=== PATIENT | male | born 1965 | race Caucasian/White ===

== ENCOUNTER 2017-04-03 20:42 | Emergency (ER) | payer OTHER ==
[2017-04-03 21:09] VITALS: BP 132/90; PULSE 60; TEMP 97.5; BMI 24.3
--- NOTE | 2017-04-03 22:41 | PDOC ---
History of Present Illness - General Chief Complaint: Pain, Acute Stated Complaint: LEFT FOOT PAIN Time Seen by Provider: 04/03/17 21:45 History Source: Patient Exam Limitations: No Limitations - History of Present Illness Initial Comments: 04/03/17 22:35 Patient is a 51 year old male, denies any significant medical history. Patient reports 4 days ago he twisted his left lower leg while at work now with pain to left lower anterior leg just superior to ankle. Pain to touch. Past Medical History: Denies. Allergies: No known allergies Medications: None Family History: Non-contributory Social History: Denies smoking, alcohol use, or IVDU Review of Systems GENERAL/CONSTITUTIONAL: No fever or chills. No weakness. No weight change. HEAD, EYES, EARS, NOSE AND THROAT: No change in vision. No ear pain or discharge. No sore throat. CARDIOVASCULAR: No chest pain or shortness of breath. RESPIRATORY: No cough, wheezing, or hemoptysis. GASTROINTESTINAL: No nausea, vomiting, diarrhea or constipation. No rectal bleeding. GENITOURINARY: No dysuria, frequency, or change in urination. MUSCULOSKELETAL: Pain to anterior left lower leg, no visible injury SKIN : No erythema edema or bruising NEUROLOGIC: No headache, vertigo, loss of consciousness, or loss of sensation. No numbness or tingling Physical Exam: GENERAL: The patient is awake, alert, and fully oriented, in no acute distress. LUNGS: Breath sounds equal, clear to auscultation bilaterally. No wheezes, and no crackles. HEART: Regular rate and rhythm, normal S1 and S2 without murmur, rub or gallop. MUSCULOSKELETAL: Normal range of motion, no edema. No clubbing or cyanosis. No cords, erythema, or tenderness. Pain to left anterior lower leg NEUROLOGICAL: Cranial nerves II through XII grossly intact. Normal speech, normal gait. SKIN: Warm, Dry, normal turgor, no rashes or lesions noted. No erythema edema or bruising 04/03/17 22:50 Past History - Past Medical History Allergies/Adverse Reactions: Allergies Allergy/AdvReac Type Severity Reaction Status Date / Time No Known Allergies Allergy Verified 04/03/17 21:09 Home Medications: Ambulatory Orders Ibuprofen [Motrin -] 600 mg PO QID #28 tablet 04/03/17 Oxycodone HCl/Acetaminophen [Percocet 5-325 mg Tablet] 1 tab PO Q6H #8 tablet MDD 4 04/03/17 Other medical history: Denies - Surgical History Appendectomy: Yes - Immunization History Immunization Up to Date: Yes - Psycho/Social/Smoking Cessation Hx Suicidal Ideation: No Smoking History: Never smoked Information on smoking cessation initiated: No Hx Alcohol Use: No Drug/Substance Use Hx: No Substance Use Type: None *Physical Exam - Vital Signs Last Vital Signs Temp Pulse Resp BP Pulse Ox 97.5 F L 60 16 132/90 97 04/03/17 21:05 04/03/17 21:05 04/03/17 21:05 04/03/17 21:05 04/03/17 21:05 ED Treatment Course - RADIOLOGY Radiology Studies Ordered: Category Date Time Status ANKLE & FOOT-LEFT* [RAD] Stat Radiology 04/03/17 21:23 Taken LEG TIB/FIB-LEFT [RAD] Stat Radiology 04/03/17 21:47 Taken Medical Decision Making - Medical Decision Making 04/03/17 22:51 A/P: Patient with left anterior lower leg pain. Patient states he twisted his leg 4 days ago and still with pain unsure of any other trauma or hitting area. There is no erythema edema or bruising. Patient sent to x-ray, x-ray reviewed with Dr. Choi, no acute fracture was noted. Jese wrap placed to the area patient states some relief. Patient reports that he is unable to sleep because of the pain, there is no calf pain, negative Homans sign. No risk factors for DVT. We'll DC patient home on a few Percocet, Motrin and anti-inflammatories, strict follow-up with Dr. Hurtado. I discussed the physical exam findings, ancillary test results and final diagnoses with the patient. I answered all of the patient's questions. The patient was satisfied with the care received and felt comfortable with the discharge plan and treatment plan. The patient will call to arrange follow-up and will return to the Emergency Department with any new, persistent or worsening symptoms. *DC/Admit/Observation/Transfer Diagnosis at time of Disposition: Leg pain Qualifiers: Laterality: left Qualified Code(s): M79.605 - Pain in left leg Injury of left leg Qualifiers: Encounter type: initial encounter Qualified Code(s): S89.92XA - Unspecified injury of left lower leg, initial encounter - Discharge Dispostion Disposition: HOME Condition at time of disposition: Good Admit: No - Prescriptions Prescriptions: Ibuprofen [Motrin -] 600 mg PO QID #28 tablet Oxycodone HCl/Acetaminophen [Percocet 5-325 mg Tablet] 1 tab PO Q6H #8 tablet MDD 4 - Referrals Referrals: Yodit Cunha MD [Primary Care Provider] - Sukh Hurtado MD [Staff Physician] - - Patient Instructions Additional Instructions: 1. Please return to the emergency department with any redness, swelling, increased pain, or any other concerns. 2. Keep jese wrap on for support. 3. Please follow up in the office of Dr. Hurtado within a week if pain persists. 4. No weightbearing 5. Ice and elevate when at rest. 6. Motrin for pain
== END 2017-04-03 22:44 | disposition home or self-care (01) ==
LOC: JERFT 20:42
DX: S89.82XA Other specified injuries of left lower leg, initial encounter (principal); X50.1XXA Overexertion from prolonged static or awkward postures, initial encounter; Y93.89 Activity, other specified; Y92.89 Other specified places as the place of occurrence of the external cause; Y99.0 Civilian activity done for income or pay
CPT/HCPCS: 73590-TC-LT; 73610-TC-LT; 73630-TC-LT; 99281-25

== ENCOUNTER 2019-02-19 19:05 | Emergency (ER) | payer OTHER ==
[2019-02-19 19:11] VITALS: BP 129/86; PULSE 63; TEMP 98.1; BMI 25.8
--- NOTE | 2019-02-19 19:13 | PDOC ---
Rapid Medical Evaluation Medical Evaluation: Allergies Allergy/AdvReac Type Severity Reaction Status Date / Time No Known Allergies Allergy Verified 04/03/17 21:09 02/19/19 19:08 I have performed a brief in-person evaluation of this patient. The patient presents with a chief complaint of: abd pain x 5 dAYS, + constipation no medications for resolve Pertinent physical exam findings: abd soft with some mid- epigastric pain / NO alcohol or drugs I have ordered the following: Flat Upright Xray The patient will proceed to the ED for further evaluation. Discharge Disposition - Diagnosis Abdominal pain - Referrals - Patient Instructions - Post Discharge Activity
--- NOTE | 2019-02-19 20:57 | PDOC ---
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 Pt was unable to describe the pain, but stated it was constant, nonradiating, no aggravating or alleviating factors. Pt denied daily ETOH use, denied daily NSAID use, denied spicy/fried food intake. Pt denied fever, chills, nausea, vomiting, diarrhea. Pt admitted to bowel movement today. Allergies: NKDA Past History - Past Medical History Allergies/Adverse Reactions: Allergies Allergy/AdvReac Type Severity Reaction Status Date / Time No Known Allergies Allergy Verified 02/19/19 19:11 Home Medications: Ambulatory Orders Ibuprofen [Motrin -] 600 mg PO QID #28 tablet 04/03/17 Oxycodone HCl/Acetaminophen [Percocet 5-325 mg Tablet] 1 tab PO Q6H #8 tablet MDD 4 04/03/17 Pantoprazole Sodium [Protonix -] 40 mg PO DAILY #14 tablet.ec 02/19/19 Pantoprazole Sodium [Protonix -] 40 mg PO DAILY #14 tablet.ec 02/19/19 COPD: No - Surgical History Appendectomy: Yes - Immunization History Immunization Up to Date: Yes - Suicide/Smoking/Psychosocial Hx Smoking History: Never smoked Hx Alcohol Use: No Drug/Substance Use Hx: No Substance Use Type: None Review of Systems - Review of Systems Able to Perform ROS?: Yes Comments:: 02/19/19 21:24 General: denied fever, chills, generalized weakness. HEENT: denied sore throat, rhinorrhea, ear pain. Heart: denied chest pain, palpitations, syncope, diaphoresis. Respiratory: denied shortness of breath, cough, sputum production, hemoptysis. Abdomen: admitted to abdominal pain. denied nausea, vomiting, diarrhea, constipation, blood in stool. : denied dysuria, increased urinary frequency, hematuria, urinary incontinence , flank pain. Back: denied back pain. Musculoskeletal: denied joint pain, muscle pain, joint swelling. Neurological: denied headache, dizziness, numbness, tingling, weakness. Skin: denied rash, laceration, abrasion. *Physical Exam - Vital Signs Last Vital Signs Temp Pulse Resp BP Pulse Ox 98.1 F 63 18 129/86 95 02/19/19 19:08 02/19/19 19:08 02/19/19 19:08 02/19/19 19:08 02/19/19 19:08 - Physical Exam Comments: 02/19/19 21:24 Constitutional: Well-nourished, Well-developed, appearing stated age. HEENT: head is normocephalic, atraumatic. EOMI. PERRLA. Neck: supple. Full ROM. Heart: regular rhythm. no murmurs, rubs or gallops. Lungs: clear to auscultation bilaterally. no crackles, rhonchi or wheezing. no stridor. Abdomen: soft, flat, epigastric tenderess to palpation. murphys negative. normal bowel sounds. no rebound, guarding, masses. Extremities: peripheral pulses intact. no lower extremity edema. Neurological: CN 2-12 grossly intact. moves all four extremities. Psych: awake, alert, oriented x3. follows commands. answers questions appropriately. ED Treatment Course - LABORATORY CBC & Chemistry Diagram: 02/19/19 21:18 02/19/19 21:17 Medical Decision Making - Medical Decision Making 02/19/19 21:24 53 year old male with above PMH presented to ED for epigastric pain x5 days. Initial Vital Signs Temp Pulse Resp BP Pulse Ox 98.1 F 63 18 129/86 95 02/19/19 19:08 02/19/19 19:08 02/19/19 19:08 02/19/19 19:08 02/19/19 19:08 Afebrile. No tachycardia. No tachypnea. No hypotension. No hypoxia on room air. Labs ordered: CBC, CMP, lipase Medications ordered: pepcid, maalox Imaging ordered: KUB 02/19/19 22:19 CBC WBC 3.9 K/mm3 (4.0-10.0) L 02/19/19 21:18 RBC 4.57 M/mm3 (4.00-5.60) 02/19/19 21:18 Hgb 12.8 GM/dL (11.7-16.9) 02/19/19 21:18 Hct 39.6 % (35.4-49) 02/19/19 21:18 MCV 86.7 fl (80-96) 02/19/19 21:18 MCH 27.9 pg (25.7-33.7) 02/19/19 21:18 MCHC 32.2 g/dl (32.0-35.9) 02/19/19 21:18 RDW 13.5 % (11.9-15.9) 02/19/19 21:18 Plt Count 229 K/MM3 (134-434) 02/19/19 21:18 MPV 8.6 fl (7.5-11.1) 02/19/19 21:18 Absolute Neuts (auto) 1.1 K/mm3 (1.5-8.0) L 02/19/19 21:18 Neutrophils % 29.0 % (42.8-82.8) L 02/19/19 21:18 Lymphocytes % 44.7 % (8-40) H 02/19/19 21:18 Monocytes % 11.5 % (3.8-10.2) H 02/19/19 21:18 Eosinophils % 14.5 % (0-4.5) H 02/19/19 21:18 Basophils % 0.3 % (0-2.0) 02/19/19 21:18 Nucleated RBC % 0 % (0-0) 02/19/19 21:18 No leukocytosis. No anemia. Elevated eosinophils, monocytes, lymphocytes. CMP Sodium 141 mmol/L (136-145) 02/19/19 21:17 Potassium 4.4 mmol/L (3.5-5.1) 02/19/19 21:17 Chloride 109 mmol/L (98-107) H 02/19/19 21:17 Carbon Dioxide 26 mmol/L (21-32) 02/19/19 21:17 Anion Gap 6 MMOL/L (8-16) L 02/19/19 21:17 BUN 22 mg/dL (7-18) H 02/19/19 21:17 Creatinine 0.8 mg/dL (0.55-1.3) 02/19/19 21:17 Est GFR (CKD-EPI)AfAm 119.04 02/19/19 21:17 Est GFR (CKD-EPI)NonAf 102.71 02/19/19 21:17 Random Glucose 92 mg/dL (74-106) 02/19/19 21:17 Calcium 8.7 mg/dL (8.5-10.1) 02/19/19 21:17 Total Bilirubin 0.3 mg/dL (0.2-1) 02/19/19 21:17 AST 26 U/L (15-37) 02/19/19 21:17 ALT 26 U/L (13-61) 02/19/19 21:17 Alkaline Phosphatase 69 U/L (45-117) 02/19/19 21:17 Total Protein 7.0 g/dl (6.4-8.2) 02/19/19 21:17 Albumin 3.7 g/dl (3.4-5.0) 02/19/19 21:17 Lipase 160 U/L (73-393) 02/19/19 21:17 No electrolyte abnormalities. No PENNY. No transaminitis. Normal lipase. KUB my view: constipation. no free air under diaphragm. 02/19/19 22:33 Pt reassessed, reported improvement of pain. Now sitting upright in a chair, with his family member laying on the stretcher. Abdominal examination: soft, flat, nontender to palpation. 02/19/19 22:54 Troponin within normal limits. Results explained to patient with phone commander internal affairs: [id number] Pt informed to follow up with PCP. Pt discharged. Discharge medications: Protonix 40 mg daily x14 days *DC/Admit/Observation/Transfer Diagnosis at time of Disposition: Epigastric pain - Discharge Dispostion Disposition: HOME Condition at time of disposition: Improved Decision to Admit order: No - Prescriptions Prescriptions: Pantoprazole Sodium [Protonix -] 40 mg PO DAILY #14 tablet.ec Pantoprazole Sodium [Protonix -] 40 mg PO DAILY #14 tablet.ec - Referrals Referrals: Wesley Terry DO [Staff Physician] - Valencia Nogueira MD [Staff Physician] - Chintan Henriquez MD [Staff Physician] - Bronson Baxter MD [Staff Physician] - - Patient Instructions Printed Discharge Instructions: Eosinophilia, DI for Gastroesophageal Reflux Disease (GERD), DI for Abdominal Pain-Adult, GERD Diet Additional Instructions: You were seen today for abdominal pain. Your lab work was normal, except your Eosinophils were elevated. This can be due to many things, including allergies or a parasite infection. Follow up with your primary care doctor within 2-3 days. Follow up with a stapling machine operator within 2-3 days. I have provided you with multiple referrals. I have sent a prescription to your pharmacy to treat stomach acid, take as advised on label. Do not take ibuprofen/advil/motrin/naproxen. Do not eat spicy or fried foods. For the next day eat bland foods: bread, rice, toast, applesauce, plain chicken Return to the Emergency Department for increasing pain, vomiting, chest pain, shortness of breath, fever, lightheadedness like you may pass out or any other new, worsening or concerning symptoms. CANADIAN TRANSLATION PROVIDED BY [employer] TRANSLATE Te vieron hoy por dolor abdominal. Allen trabajo de laboratorio fue normal, excepto que shoshana eosinfilos estaban elevados. [place] puede deberse a muchas cosas, incluso alergias o husam infeccin parasitaria. Yosef un seguimiento con allen mdico de atencin primaria dentro de 2 a 3 gauthier. Yosef un seguimiento con un gastroenterlogo dentro de 2-3 gauthier. Te he proporcionado mltiples referencias. He enviado husam receta a allen farmacia para tratar el cido estomacal, siga las indicaciones de la etiqueta. No tome ibuprofeno / advil / motrin / naproxeno. No coma alimentos fritos o picantes. Para el da siguiente comer alimentos blandos: peterson, arroz, tostadas, compota de manzana, jose simple. Regrese al Departamento de Emergencias para aumentar el dolor, los vmitos, el dolor en el pecho, la falta de aliento, la fiebre, el mareo hope si pudiera desmayarse o cualquier otro sntoma nuevo, que empeore o relacionado. Print Language: CANADIAN - Post Discharge Activity Forms/Work/School Notes: Back to Work
[2019-02-19] MEDS ORDERED: FAMOTIDINE 20 MG/50 ML IVPB 20 MG/50 ML MG IVPB ONE ×2 (21:17→21:42)
[2019-02-19] MEDS ORDERED: MAG HYDROX/AL HYDROX/SIMETH 30 ML UNIT-DOSE CUP PO ONE (21:17)
[2019-02-19 21:31] LABS: BASO % 0.3 % (0-2.0); EOS % 14.5 % (0-4.5); HEMATOCRIT 39.6 % (35.4-49); HEMOGLOBIN 12.8 GM/dL (11.7-16.9); LYMPH % 44.7 % (8-40); MCH 27.9 pg (25.7-33.7); MCHC 32.2 g/dl (32.0-35.9); MEAN CELL VOLUME 86.7 fl (80-96); MEAN PLT VOLUME 8.6 fl (7.5-11.1); MONO % 11.5 % (3.8-10.2); PLATELET COUNT 229 K/MM3 (134-434); RBC 4.57 M/mm3 (4.00-5.60); RDW 13.5 % (11.9-15.9); WHITE BLOOD COUNT 3.9 K/mm3 (4.0-10.0)
[2019-02-19] MEDS ORDERED: MAG HYDROX/AL HYDROX/SIMETH 30 ML UNIT-DOSE CUP ONE (21:42)
[2019-02-19 22:03] LABS: ALBUMIN 3.7 g/dl (3.4-5.0); BILIRUBIN,TOTAL 0.3 mg/dL (0.2-1); CALCIUM 8.7 mg/dL (8.5-10.1); CREATININE 0.8 mg/dL (0.55-1.3); POTASSIUM 4.4 mmol/L (3.5-5.1)
--- NOTE | 2019-02-20 15:36 | PDOC ---
Documentation entered by Jean Valderrama SCRIBE, acting as scribe for Laura Navarro MD. Laura Navarro MD: This documentation has been prepared by the Lavelle mandujano Daniel, SCRIBE, under my direction and personally reviewed by me in its entirety. I confirm that the documentation accurately reflects all work, treatment, procedures, and medical decision making performed by me. Attending Attestation - Resident Resident Name: Eve Barlow - ED Attending Attestation I have performed the following: I have examined & evaluated the patient, The case was reviewed & discussed with the resident, I agree w/resident's findings & plan, Exceptions are as noted - HPI HPI: 02/19/19 21:38 The patient is a 53 year old male with a past medical history of splenectomy ( secondary to trauma), appendectomy, and chronic constipation here today for evaluation of epigastric pain for 1 week. He reports the pain is dull, sometimes burning in nature. Pain does not radiate, not associated with N/V/D. Pain is better after he eats. He denies aggravating factors. Last BM was today, normal, not dark or bloody. He denies daily alcohol use, daily NSAID use, or excessive intake of spicy food. Patient denies lightheadedness, weakness/numbness. Denies fever, chills. Denies chest pain, shortness of breath. Allergies: NKA - Physicial Exam PE: 02/20/19 15:29 GENERAL: Awake, alert, and fully oriented, in no acute distress EYES: PERRLA, EOMI, sclera anicteric, conjunctiva clear ENT: Oropharynx clear without exudates. Moist mucosa NECK: Normal ROM, supple, no lymphadenopathy, JVD, or masses LUNGS: Breath sounds equal, clear to auscultation bilaterally. No wheezes, and no crackles HEART: Regular rate and rhythm, normal S1 and S2, no murmurs, rubs or gallops ABDOMEN: Soft, nontender, normoactive bowel sounds. No guarding, no rebound. No masses EXTREMITIES: Normal range of motion, no edema. No cords, erythema, or tenderness NEUROLOGICAL: Normal speech, cranial nerves intact, equal strength and sensation b/l SKIN: Warm, Dry, normal turgor, no rashes or lesions noted. - Medical Decision Making 02/20/19 00:30 53yo M with no significant PMH presents to the ED with 1 week of epigastric pain. Vitals wnl Exam wnl, no abd ttp DDx includes GERD vs gastritis vs PUD vs ACS Pt has no ACS risk factors, denies family hx, smoking Labs including troponing negative. EKG non ischemic XR with large amount of stool consistent with pt's chronic constipation Pt had BM today, passing flatus Pt reported complete resolution of pain after pepcid and maalox Advised pt to take daily stool softeners and increase fiber in his diet. Pt requests DC home, will f/u with PMD. I discussed the physical exam findings, ancillary test results and final diagnoses with the patient. I answered all of the patient's questions. The patient was satisfied with the care received and felt comfortable with the discharge plan and treatment plan. The patient will call their primary care physician within 24 hours to arrange follow-up and will return to the Emergency Department with any new, persistent or worsening symptoms.
== END 2019-02-19 23:13 | disposition home or self-care (01) ==
LOC: JER 19:05
PROC: 3E033GC Introduction of Other Therapeutic Substance into Peripheral Vein, Percutaneous Approach (ICD-10-PCS; principal; 2019-02-19)
DX: R10.13 Epigastric pain (principal)
CPT/HCPCS: 36415; 74019-TC-FY; 80053; 83690; 84484; 85025; 99282-25

== ENCOUNTER 2020-08-17 07:39 | Emergency (ER) | payer OTHER ==
[2020-08-17 07:56] VITALS: BP 132/92; PULSE 63; BMI 28.2
[2020-08-17 07:57] VITALS: TEMP 98.2
[2020-08-17] MEDS ORDERED: methylPREDNISolone NA SUCC 125 MG/2 ML VIAL IVPB ONE (09:42)
[2020-08-17] MEDS ORDERED: methylPREDNISolone NA SUCC 125 MG/2 ML VIAL ONE (09:52)
[2020-08-17 10:21] LABS: BASO % 2.5 % (0-2.0); EOS % 10.7 % (0-4.5); HEMATOCRIT 40.7 % (35.4-49); HEMOGLOBIN 13.4 GM/dL (11.7-16.9); LYMPH % 42.1 % (8-40); MCH 27.7 pg (25.7-33.7); MCHC 32.9 g/dl (32.0-35.9); MEAN CELL VOLUME 84.3 fl (80-96); MEAN PLT VOLUME 8.6 fl (7.5-11.1); NEUT % 32.7 % (42.8-82.8); PLATELET COUNT 209 K/MM3 (134-434); RBC 4.83 M/mm3 (4.00-5.60); RDW 13.2 % (11.9-15.9); WHITE BLOOD COUNT 2.3 K/mm3 (4.0-10.0)
[2020-08-17 10:51] LABS: CHLORIDE 107 mmol/L (98-107); POTASSIUM 4.7 mmol/L (3.5-5.1); SODIUM 137 mmol/L (136-145)
[2020-08-17 10:54] LABS: ALBUMIN 3.8 g/dl (3.4-5.0); ANION GAP 6 MMOL/L (8-16); CALCIUM 8.4 mg/dL (8.5-10.1); CO2 24 mmol/L (21-32)
[2020-08-17 10:55] LABS: BLOOD UREA NITROGEN 13.1 mg/dL (7-18); GLUCOSE,RANDOM 82 mg/dL (74-106)
[2020-08-17 10:58] LABS: CREATININE 0.6 mg/dL (0.55-1.3); SGOT/AST 38 U/L (15-37); SGPT/ALT 25 U/L (13-61)
[2020-08-17 10:59] LABS: BILIRUBIN,TOTAL 0.5 mg/dL (0.2-1); TOT PROT 7.2 g/dl (6.4-8.2)
[2020-08-17 11:00] LABS: ALK PHOS 84 U/L (45-117)
== END 2020-08-17 11:44 | disposition home or self-care (01) ==
LOC: JER 07:39
PROC: 3E033GC Introduction of Other Therapeutic Substance into Peripheral Vein, Percutaneous Approach (ICD-10-PCS; principal; 2020-08-17)
DX: R05 Cough (principal); J06.9 Acute upper respiratory infection, unspecified
CPT/HCPCS: 36415; 71046-TC-FY; 80053; 82550; 82553; 84484; 85025; 93005; 93010; 99285-25; C9803; U0003